=== PATIENT | female | born 1965 | race Caucasian/White ===

== ENCOUNTER 2024-12-17 18:08 | Emergency (ER) | payer BC, SELFPAY ==
[2024-12-17 18:12] VITALS: BP 174/93
[2024-12-17 18:41] LABS: Hematocrit 38.3 % (37.0-47.0); Hemoglobin 12.8 g/dL (12.0-16.0); Mean Corp Hgb Conc. 33.4 g/dL (33.0-37.0); Mean Corpuscular Volume 90.3 fL (81.0-99.0); Nucleated Red Blood Cells % 0 %; Platelet Count 249 10^3/uL (130-400); Red Cell Dist. Width 12.9 % (11.5-14.5)
[2024-12-17 18:57] LABS: ALT (SGPT) 31 U/L (0-35); AST (SGOT) 23 U/L (14-36); Albumin 4.6 g/dl (3.5-5.0); Alkaline Phosphatase 81 U/L (38-126); Blood Urea Nitrogen 13 mg/dl (7-17); Calcium 9.5 mg/dl (8.4-10.2); Carbon Dioxide 26 mmol/L (22-30); Chloride 104 mmol/L (98-107); Glucose 169 mg/dl (70-99); Potassium 3.4 mmol/L (3.5-5.1); Sodium 140 mmol/L (135-145); Total Protein 7.4 g/dl (6.3-8.2); eGFR > 60.00
[2024-12-17 20:08] LABS: Troponin I < 0.012 ng/ml
--- NOTE | 2024-12-17 21:42 | ED.GENMED ---
History of Present Illness
General
Chief Complaint: Back Pain
Source: patient
Time Seen by Provider: 12/17/24 21:18
History of Present Illness
History of Present Illness:
59-year-old female with no significant past medical history presenting to the emergency department for evaluation of upper mid back pain which she states is a sharp pain, relatively constant, nonradiating, seemingly worse with movement, slightly
worse with deep inspiration stating when the pain gets more severe it will cause her to lock up and feel spasmed. Patient is approximately 1 month postop for hernia repair done at [facility]. She reports that the drain was removed
2 weeks ago and there were no reported complications. She is denying any abdominal pain, nausea, vomiting, shortness of breath. Her who is present with her did state that he thought her left ankle was a little bit swollen the other day and
upon examining it today also states it looks a little bit more swollen as well. Social history noncontributory. Family history was negative for any bleeding or clotting disorder.
Past History
Past History
ED Past Medical History: None
ED Past Surgical History: Cholecystectomy, and Other
Social History
Tobacco: Non-smoker
Alcohol: None
Drug: None
Personal:
Living: with family
Review of Systems
Review of Systems
All Other Systems: ROS reviewed and negative except as documented in HPI and ROS
Phy Exam
Physical Exam
Physical Exam:
GENERAL: Alert , in no apparent distress but patient does grimace when she goes to sit forward or move
EYE: clear conjunctiva b/l
HEAD: NCAT
ENT: o/p clr, mmm.
CARDIAC: Regular rate and rhythm .
LUNGS: Clear breath sounds bilaterally, no acute respiratory distress, no wheezes/rales/rhonchi
ABDOMEN: Soft, without focal tenderness, no r/g, no cvat
NEUROLOGICAL: Alert and oriented
SKIN: Warm and dry, skin intact.
MUSCULOSKELETAL: Trace non-pitting ankle edema on the left, well perfused.
PSYCH: Normal and appropriate interaction.
Scores
Heart Failure Risk
Heart Failure Risk Score: Not Applicable
Heart Score for Chest Pain Patients
STEMI patient?: Not applicable
Withdrawal Assessment of Alcohol
Withdrawal Assessment Completed?: Not applicable
Course
Orders/Labs/Results
Orders:
Orders
12/17/24 18:17
ECG [Electrocardiogram (*1)] Urgent
Reason for Study: Other
Other Reason for Exam: back pain
12/17/24 18:18
EKG- Treatment ONCE
12/17/24 18:30
Complete Blood Count/With Diff Urgent
Comprehensive Metabolic Panel Urgent
Troponin I Urgent
12/17/24 21:34
CT Chest PE Study Urgent
Comment:
Reason For Exam: recent surgery, center of back pain
Acetaminophen [Tylenol] 1,000 mg PO NOW STA
Abnormal Lab Results
12/17/24
18:30
Potassium 3.4 L mmol/L
(3.5-5.1)
Creatinine 0.5 L mg/dL
(0.6-1.0)
Glucose 169 H mg/dl
(70-99)
12/17/24 18:30
12/17/24 18:30
Vital Signs
Initial and Last Documented VS:
Initial Vital Signs
Temp Pulse Resp BP Pulse Ox
97.9 F 84 20 174/93 99
12/17/24 18:12 12/17/24 18:12 12/17/24 18:12 12/17/24 18:12 12/17/24 18:12
Last Documented Vital Signs
Temp Pulse Resp BP Pulse Ox
97.9 F 84 20 174/93 99
12/17/24 18:12 12/17/24 18:12 12/17/24 18:12 12/17/24 18:12 12/17/24 21:47
MDM/Problems Addressed
Differential Diagnosis Includes:
Pulmonary embolism
DVT
Dissection
AAA
GERD/gastritis
Esophageal spasm
ACS
Muscle Strain
Pneumonia
MDM/Problems Addressed:
59-year-old female presenting to the ER for evaluation of upper back pain that started few days ago, recently postoperative from hernia repair. While patient does not have any cough she does endorse some mild pleurisy as well as has left-sided
ankle edema. I do have suspicion and concern for possible PE. Labs initiated on arrival are reassuring. CTA of the chest added to workup. Disposition pending.
Chronic conditions affecting care: Previous abdomnial surgery
*Radiology
Radiology exam reviewed: radiology read reviewed
*Pulse Oximetry
SaO2: 99
Oxygen Mode of Delivery: Room air
Patient hypoxic: no
*EKG
Heart Rate: 81
Rate: normal
Rhythm: sinus
Ischemia: no ischemia
*Child'S Nurse Interpretation
Rate: normal
Heart Rate: 80
Rhythm: sinus
*Critical Care Note
Total Time (30-74mins, 75-104mins- exclusive of procedures): Not Applicable
Patient Management
Escalation/DeEscalation of care consider admission/obs:
Patient CTA is negative for acute PE however there does appear to be an age-indeterminate T9 compression fracture which would be an the location as to where patient was experiencing her pain. She denies any trauma to the affected area, she does
note a history of osteoporosis and this may be playing a role in her current symptoms. She declines anything for pain to go home with but I did encourage her to follow-up with primary care provider as she may need further imaging such as an MRI to
get a better visual of the potential fracture in this area. Patient expressed understanding. Aware of return precautions to the ER. Stable for discharge home.
ED Attending Note
-
Portions of this chart may have been created with voice recognition software.� Occasional wrong word or��sound alike� substitutions may have occurred due to the inherent limitations of voice recognition software.
Discharge Plan
Departure
Patient Disposition: Home (Routine Discharge)
Date of Disposition: 12/17/24
Time of Disposition: 22:34
Patient with high blood pressure during this ER visit?: Yes
Discharge Problem:
Dorsalgia
Instructions: Upper Back Pain (DC)
Referrals:
Tenthoff,Abigail Gallo MD [Family Provider, [facility]]
Interventions
Interventions:
*General Assessment Last Done: 12/17/24 18:12
*Nursing Disposition Last Done: 12/17/24 23:00
ED-Musculoskeletal Assessment Last Done: 12/17/24 21:59
Discharge Date and Time
Discharge Date/Time: 12/17/24 23:00
Print Language: ITALIAN
[2024-12-17] MEDS: TYLENOL 1000 MG PO (22:08)
[2024-12-17 22:21] VITALS: BMI 29.7
== END 2024-12-17 23:00 | disposition home or self-care (01) ==
LOC: EMR 18:08
PROVIDERS: Emergency Medicine; EMERGENCY PHYSICIAN Emergency Medicine; FAMILY PHYSICIAN Family Medicine
DX: M54.6 Pain in thoracic spine (principal); M81.0 Age-related osteoporosis without current pathological fracture
CPT/HCPCS: 99284; 71275; 80053; 84484; 85025; 93005; Q9967